=== PATIENT | female | born 2000 ===

== ENCOUNTER 2021-07-17 06:00 | Outpatient (RCR) | payer MEDICAID, SELFPAY | END 2021-08-16 23:59 | disposition home or self-care (01) | LOC: GST 06:00 | PROVIDERS: Family Provider Nurse Practitioner; Referring Provider Nurse Practitioner; Visit Provider Nurse Practitioner | DX: F80.9 Developmental disorder of speech and language, unspecified (principal) | CPT/HCPCS: 92507; 92523 ==

== ENCOUNTER 2021-08-17 06:00 | Outpatient (RCR) | payer MEDICAID, SELFPAY | END 2021-09-15 23:59 | disposition home or self-care (01) | LOC: GST 06:00 | PROVIDERS: Referring Provider Nurse Practitioner; Visit Provider Nurse Practitioner | DX: F84.0 Autistic disorder (principal); F80.9 Developmental disorder of speech and language, unspecified | CPT/HCPCS: 92507 ==

== ENCOUNTER 2021-09-16 06:00 | Outpatient (RCR) | payer MEDICAID, SELFPAY | END 2021-10-16 23:59 | disposition home or self-care (01) | LOC: GST 06:00 | PROVIDERS: Referring Provider Nurse Practitioner; Visit Provider Nurse Practitioner | DX: F80.9 Developmental disorder of speech and language, unspecified (principal) | CPT/HCPCS: 92507 ==

== ENCOUNTER 2021-10-17 06:00 | Outpatient (RCR) | payer MEDICAID, SELFPAY | END 2021-11-15 23:59 | disposition home or self-care (01) | LOC: GST 06:00 | PROVIDERS: Referring Provider Nurse Practitioner; Visit Provider Nurse Practitioner | DX: F80.9 Developmental disorder of speech and language, unspecified (principal) | CPT/HCPCS: 92507 ==

== ENCOUNTER 2021-11-16 06:00 | Outpatient (RCR) | payer MEDICAID, SELFPAY | END 2021-12-16 23:59 | disposition home or self-care (01) | LOC: GST 06:00 | PROVIDERS: Referring Provider Nurse Practitioner; Visit Provider Nurse Practitioner | DX: F80.9 Developmental disorder of speech and language, unspecified (principal) | CPT/HCPCS: 92507 ==

== ENCOUNTER 2021-12-17 06:00 | Outpatient (RCR) | payer MEDICAID, SELFPAY | END 2022-01-16 23:59 | disposition home or self-care (01) | LOC: GST 06:00 | PROVIDERS: Referring Provider Nurse Practitioner; Visit Provider Nurse Practitioner | DX: F80.9 Developmental disorder of speech and language, unspecified (principal); F84.0 Autistic disorder | CPT/HCPCS: 92507 ==

== ENCOUNTER 2022-01-17 06:00 | Outpatient (RCR) | payer MEDICAID, SELFPAY | END 2022-02-15 23:59 | disposition home or self-care (01) | LOC: GST 06:00 | PROVIDERS: PCP Nurse Practitioner; Visit Provider Nurse Practitioner | DX: F80.9 Developmental disorder of speech and language, unspecified (principal) | CPT/HCPCS: 92507 ==

== ENCOUNTER 2022-01-30 10:30 | Outpatient (RCR) | payer MEDICAID, SELFPAY | END 2022-02-15 23:59 | disposition home or self-care (01) | LOC: GPT 10:30 | PROVIDERS: PCP Nurse Practitioner; Visit Provider Nurse Practitioner | DX: R26.89 Other abnormalities of gait and mobility (principal) | CPT/HCPCS: 97162 ==

== ENCOUNTER 2022-02-16 06:00 | Outpatient (RCR) | payer MEDICAID, SELFPAY | END 2022-03-18 23:59 | disposition home or self-care (01) | LOC: GPT 06:00 | PROVIDERS: PCP Nurse Practitioner; Visit Provider Nurse Practitioner | DX: R26.89 Other abnormalities of gait and mobility (principal) | CPT/HCPCS: 97110 ==

== ENCOUNTER 2022-02-16 06:00 | Outpatient (RCR) | payer MEDICAID, SELFPAY | END 2022-03-18 23:59 | disposition home or self-care (01) | LOC: GST 06:00 | PROVIDERS: PCP Nurse Practitioner; Visit Provider Nurse Practitioner | DX: R26.89 Other abnormalities of gait and mobility (principal) | CPT/HCPCS: 92507 ==

== ENCOUNTER 2022-03-19 06:00 | Outpatient (RCR) | payer MEDICAID, SELFPAY | END 2022-04-17 23:59 | disposition home or self-care (01) | LOC: GPT 06:00 | PROVIDERS: PCP Nurse Practitioner; Visit Provider Nurse Practitioner | DX: R26.89 Other abnormalities of gait and mobility (principal) | CPT/HCPCS: 97110 ==

== ENCOUNTER 2022-03-19 06:00 | Outpatient (RCR) | payer MEDICAID, SELFPAY | END 2022-04-17 23:59 | disposition home or self-care (01) | LOC: GST 06:00 | PROVIDERS: PCP Nurse Practitioner; Visit Provider Nurse Practitioner | DX: F80.9 Developmental disorder of speech and language, unspecified (principal) | CPT/HCPCS: 92507 ==

== ENCOUNTER 2022-04-18 06:00 | Outpatient (RCR) | payer MEDICAID, SELFPAY | END 2022-05-18 23:59 | disposition home or self-care (01) | LOC: GPT 06:00 | PROVIDERS: PCP Nurse Practitioner; Visit Provider Nurse Practitioner | DX: R26.9 Unspecified abnormalities of gait and mobility (principal) | CPT/HCPCS: 97110 ==

== ENCOUNTER 2022-04-18 06:00 | Outpatient (RCR) | payer MEDICAID, SELFPAY | END 2022-05-18 23:59 | disposition home or self-care (01) | LOC: GST 06:00 | PROVIDERS: PCP Nurse Practitioner; Visit Provider Nurse Practitioner | DX: F80.9 Developmental disorder of speech and language, unspecified (principal) | CPT/HCPCS: 92507 ==

== ENCOUNTER 2022-05-19 06:00 | Outpatient (RCR) | payer MEDICAID, SELFPAY | END 2022-06-18 23:59 | disposition home or self-care (01) | LOC: GPT 06:00 | PROVIDERS: PCP Nurse Practitioner; Visit Provider Nurse Practitioner | DX: R26.9 Unspecified abnormalities of gait and mobility (principal) | CPT/HCPCS: 97110 ==

== ENCOUNTER 2022-05-19 06:00 | Outpatient (RCR) | payer MEDICAID, SELFPAY | END 2022-06-18 23:59 | disposition home or self-care (01) | LOC: GST 06:00 | PROVIDERS: PCP Nurse Practitioner; Visit Provider Nurse Practitioner | DX: F80.9 Developmental disorder of speech and language, unspecified (principal) | CPT/HCPCS: 92507 ==

== ENCOUNTER 2022-06-19 06:00 | Outpatient (RCR) | payer MEDICAID, SELFPAY | END 2022-07-16 23:59 | disposition home or self-care (01) | LOC: GST 06:00 | PROVIDERS: PCP Nurse Practitioner; Visit Provider Nurse Practitioner | DX: F84.0 Autistic disorder (principal); F80.9 Developmental disorder of speech and language, unspecified | CPT/HCPCS: 92507 ==

== ENCOUNTER 2022-06-19 06:00 | Outpatient (RCR) | payer MEDICAID, SELFPAY | END 2022-07-16 23:59 | disposition home or self-care (01) | LOC: GPT 06:00 | PROVIDERS: PCP Nurse Practitioner; Visit Provider Nurse Practitioner | DX: R26.9 Unspecified abnormalities of gait and mobility (principal) | CPT/HCPCS: 97110 ==

== ENCOUNTER 2022-07-17 06:00 | Outpatient (RCR) | payer MEDICAID, SELFPAY | END 2022-08-14 23:59 | disposition home or self-care (01) | LOC: GPT 06:00 | PROVIDERS: PCP Nurse Practitioner; Visit Provider Nurse Practitioner | DX: R26.9 Unspecified abnormalities of gait and mobility (principal) | CPT/HCPCS: 97110 ==

== ENCOUNTER 2022-07-23 06:00 | Outpatient (RCR) | payer MEDICAID, SELFPAY | END 2022-08-16 23:59 | disposition home or self-care (01) | LOC: GST 06:00 | PROVIDERS: PCP Nurse Practitioner; Visit Provider Nurse Practitioner | DX: F80.9 Developmental disorder of speech and language, unspecified (principal) | CPT/HCPCS: 92507; 92523 ==

== ENCOUNTER 2022-08-17 06:00 | Outpatient (RCR) | payer MEDICAID, SELFPAY | END 2022-09-15 23:59 | disposition home or self-care (01) | LOC: GST 06:00 | PROVIDERS: PCP Nurse Practitioner; Visit Provider Nurse Practitioner | DX: F84.0 Autistic disorder (principal); F80.82 Social pragmatic communication disorder | CPT/HCPCS: 92507 ==

== ENCOUNTER 2022-09-16 06:00 | Outpatient (RCR) | payer MEDICAID, SELFPAY | END 2022-10-16 23:59 | disposition home or self-care (01) | LOC: GST 06:00 | PROVIDERS: PCP Nurse Practitioner; Visit Provider Nurse Practitioner | DX: F84.0 Autistic disorder (principal); F80.82 Social pragmatic communication disorder | CPT/HCPCS: 92507 ==